=== PATIENT | female | born 1950 | race Caucasian/White ===

== ENCOUNTER 2022-08-10 07:32 | Day surgery (SDC) | payer OTHER, BC ==
[2022-08-06 13:45] VITALS: BMI 21.9
[2022-08-10] MEDS ORDERED: LIDOCAINE HCL/PF 2% SDV 5ML VIAL ONE (07:42)
[2022-08-10] MEDS ORDERED: PROPOFOL 120 ML ONE (07:42)
[2022-08-10 07:51] VITALS: TEMP 97.6
[2022-08-10 09:30] VITALS: RESP 18
[2022-08-10 09:50] VITALS: BP 102/61; PULSE 67
== END 2022-08-10 09:50 | disposition home or self-care (01) ==
LOC: FASU-ENDO 07:32
PROVIDERS: ATTEND Internal Medicine Gastroenterology
PROC: 0DBL8ZX Excision of Transverse Colon, Via Natural or Artificial Opening Endoscopic, Diagnostic (ICD-10-PCS; principal; 2022-08-10 08:51)
DX: Z12.11 Encounter for screening for malignant neoplasm of colon (principal); Z86.010 Personal history of colon polyps; D12.2 Benign neoplasm of ascending colon; K64.8 Other hemorrhoids
CPT/HCPCS: 88305-TC